=== PATIENT | male | born 1965 ===

== ENCOUNTER → 2021-09-01 | Day surgery (SDC) | payer OTHER ==
[~2021-09-01] MED LIST: DICLOFENAC-MIS1 EAC1 PO; DRAMAMINE LESS25 MG PO; GABAPENTIN600 MG PO; IRBESARTAN-HCT1 EACH PO; LEFLUNOMIDE10 MG PO; METHOTREXATE2.5 MG PO; PRAVASTATIN SOD80 MG PO; PROTONIX40 MG PO
== END | disposition home or self-care (01) ==
LOC: CIR.AMB 05:40 → EDSTATUS 07:15 → SURH 07:15 → CIR.AMB 10:45
PROVIDERS: ATTEND Orthopaedic Surgery Hand Surgery
DX: M65.331 Trigger finger, right middle finger (principal); I10 Essential (primary) hypertension; Z88.8 Allergy status to other drugs, medicaments and biological substances